=== PATIENT | male | born 1950 | race Caucasian/White ===

== ENCOUNTER 2016-08-08 17:46 | Inpatient (IN) | payer SELFPAY ==
[~2016-08-08] VITALS: Ht 188 cm; Wt 89.5 kg
[~2016-08-08 17:46] MED LIST: ASPI-621 PO; ATOR20TA9 PO; CLOP75TA PO; LISI-167 PO; METO-95 PO; METO25TA35 PO; NITR0.4T8 SL; SPIR25TA PO
[2016-08-08] MEDS ORDERED: ASPIRIN 81 MG TABLET CHEW PO ONE (18:00)
[2016-08-08] MEDS ORDERED: SODIUM CHLORIDE FLUSH 10ML SYR IVF ONE (18:00)
[2016-08-08] MEDS ORDERED: ASPIRIN 81 MG TABLET CHEW ONE (18:42)
[2016-08-08 18:50] LABS: BLOOD UREA NITROGEN 15 mg/dL (7-18)
[2016-08-08 18:57] LABS: IS PT STATUS REG ER OR PRE ER? YES
[2016-08-08] MEDS ORDERED: FUROSEMIDE 40 MG/4 ML IV ONE (19:30)
[2016-08-08] MEDS ORDERED: FUROSEMIDE 40 MG/4 ML ONE (19:34)
[2016-08-08] MEDS ORDERED: LABETALOL 5MG/ML, 20ML IVPush PRN (20:30)
[2016-08-08] MEDS ORDERED: ACETAMINOPHEN 325 MG TABLET PO PRN (20:30)
[2016-08-08] MEDS ORDERED: TRAZODONE 50MG TABLET PO PRN (20:30)
[2016-08-08] MEDS ORDERED: BISACODYL 10 MG SUPP PR PRN (20:30)
[2016-08-08] MEDS ORDERED: ONDANSETRON ODT 4 MG PO PRN (20:30)
[2016-08-08] MEDS ORDERED: POLYETHYLENE GLYCOL 17 GM PACKET PO PRN (20:30)
[2016-08-08] MEDS ORDERED: DOCUSATE 100 MG CAPSULE PO PRN (20:30)
[2016-08-08 22:16] VITALS: BP 122/86
[2016-08-08] MEDS: ENOXAPARIN 40 MG/0.4 ML SQ SCH (22:36)
[2016-08-08] MEDS: NICOTINE 14MG/24 HR PATCH.TD24 TD SCH (22:36)
[2016-08-08] MEDS: CALCIUM CARBONATE 500 MG TABLET PO SCH (22:37)
[2016-08-08] MEDS: ATORVASTATIN 80 MG TABLET PO SCH (22:37)
[2016-08-08 23:24] LABS: IS PT STATUS REG ER OR PRE ER? NO
[2016-08-09 00:36] VITALS: BP 122/85
[2016-08-09 05:16] LABS: ASPARTATE AMINO TRANSFERASE 23 U/L (15-37); BLOOD UREA NITROGEN 15 mg/dL (7-18)
[2016-08-09 05:17] LABS: IS PT STATUS REG ER OR PRE ER? NO
[2016-08-09 05:41] VITALS: BP 109/72
[2016-08-09] MEDS: CARVEDILOL 3.125 MG TABLET PO SCH ×2 (05:51→17:24)
[2016-08-09 07:29] VITALS: BP 123/82
[2016-08-09] MEDS: ASPIRIN 81 MG TABLET CHEW PO SCH (08:08)
[2016-08-09] MEDS: LISINOPRIL 10 MG TABLET PO SCH (08:08)
[2016-08-09] MEDS: CALCIUM CARBONATE 500 MG TABLET PO SCH ×2 (08:08→20:39)
[2016-08-09] MEDS: FUROSEMIDE 40 MG/4 ML IV SCH ×2 (08:08→16:15)
[2016-08-09 13:13] VITALS: BP 122/90
[2016-08-09] MEDS: SPIRONOLACTONE 25 MG TABLET PO SCH (16:15)
[2016-08-09 19:19] VITALS: BP 113/79
[2016-08-09] MEDS: ENOXAPARIN 40 MG/0.4 ML SQ SCH (20:39)
[2016-08-09] MEDS: ATORVASTATIN 80 MG TABLET PO SCH (20:39)
[2016-08-09] MEDS: NICOTINE 14MG/24 HR PATCH.TD24 TD SCH (20:39)
[2016-08-10 00:26] VITALS: BP 104/69
[2016-08-10 04:58] LABS: BLOOD UREA NITROGEN 17 mg/dL (7-18)
[2016-08-10] MEDS: CARVEDILOL 3.125 MG TABLET PO SCH ×2 (05:44→17:26)
[2016-08-10 06:57] VITALS: BP 114/76
[2016-08-10] MEDS: LISINOPRIL 10 MG TABLET PO SCH (08:16)
[2016-08-10] MEDS: FUROSEMIDE 40 MG/4 ML IV SCH ×2 (08:16→17:26)
[2016-08-10] MEDS: CALCIUM CARBONATE 500 MG TABLET PO SCH ×2 (08:16→21:06)
[2016-08-10] MEDS: SPIRONOLACTONE 25 MG TABLET PO SCH (08:16)
[2016-08-10] MEDS: ASPIRIN 81 MG TABLET CHEW PO SCH (08:16)
[2016-08-10 13:54] VITALS: BP 119/81
[2016-08-10 18:39] VITALS: BP 113/76
[2016-08-10] MEDS: NICOTINE 14MG/24 HR PATCH.TD24 TD SCH (19:38)
[2016-08-10] MEDS: ENOXAPARIN 40 MG/0.4 ML SQ SCH (19:38)
[2016-08-10] MEDS: ATORVASTATIN 80 MG TABLET PO SCH (21:06)
[2016-08-11 01:34] VITALS: BP 111/75
[2016-08-11 05:15] LABS: ASPARTATE AMINO TRANSFERASE 27 U/L (15-37); BLOOD UREA NITROGEN 20 mg/dL (7-18)
[2016-08-11] MEDS: CARVEDILOL 3.125 MG TABLET PO SCH ×2 (06:18→18:07)
[2016-08-11 07:14] VITALS: BP 101/67
[2016-08-11] MEDS: LISINOPRIL 10 MG TABLET PO SCH (09:00)
[2016-08-11 09:45] VITALS: BP 100/65
[2016-08-11] MEDS: LISINOPRIL 5 MG TABLET PO SCH (10:00)
[2016-08-11] MEDS: CALCIUM CARBONATE 500 MG TABLET PO SCH ×2 (10:04→20:44)
[2016-08-11] MEDS: SPIRONOLACTONE 25 MG TABLET PO SCH (10:04)
[2016-08-11] MEDS: ASPIRIN 81 MG TABLET CHEW PO SCH (10:04)
[2016-08-11] MEDS: FUROSEMIDE 40 MG/4 ML IV SCH (10:04)
[2016-08-11 12:38] VITALS: BP 101/65
[2016-08-11 18:51] VITALS: BP 108/72
[2016-08-11] MEDS: ENOXAPARIN 40 MG/0.4 ML SQ SCH (20:44)
[2016-08-11] MEDS: ATORVASTATIN 80 MG TABLET PO SCH (20:44)
[2016-08-11] MEDS: NICOTINE 14MG/24 HR PATCH.TD24 TD SCH (20:44)
[2016-08-12 02:00] VITALS: BP 95/62
[2016-08-12 05:37] LABS: BLOOD UREA NITROGEN 20 mg/dL (7-18)
[2016-08-12] MEDS: CARVEDILOL 3.125 MG TABLET PO SCH ×2 (06:01→18:09)
[2016-08-12 07:03] VITALS: BP 113/78
[2016-08-12] MEDS: LISINOPRIL 5 MG TABLET PO SCH (08:16)
[2016-08-12] MEDS: ASPIRIN 81 MG TABLET CHEW PO SCH (08:16)
[2016-08-12] MEDS: SPIRONOLACTONE 25 MG TABLET PO SCH (08:16)
[2016-08-12] MEDS: CALCIUM CARBONATE 500 MG TABLET PO SCH ×2 (08:16→21:00)
[2016-08-12] MEDS ORDERED: FUROSEMIDE 40 MG/4 ML IV SCH (09:00)
[2016-08-12] MEDS: FUROSEMIDE 40 MG TABLET PO SCH (10:55)
[2016-08-12 14:19] VITALS: BP 117/64
[2016-08-12 18:08] VITALS: BP 115/83
[2016-08-12 18:54] VITALS: BP 111/78
[2016-08-12] MEDS: ENOXAPARIN 40 MG/0.4 ML SQ SCH (20:30)
[2016-08-12] MEDS: NICOTINE 14MG/24 HR PATCH.TD24 TD SCH (20:30)
[2016-08-12] MEDS: ATORVASTATIN 80 MG TABLET PO SCH (21:00)
[2016-08-13 02:21] VITALS: BP 126/91
[2016-08-13] MEDS ORDERED: NITROGLYCERIN 0.4 MG BOTTLE (25 TABS) SL PRN (05:00)
[2016-08-13 05:29] VITALS: BP 125/78
[2016-08-13] MEDS: CARVEDILOL 3.125 MG TABLET PO SCH (05:35)
[2016-08-13 06:45] LABS: IS PT STATUS REG ER OR PRE ER? NO
[2016-08-13 07:08] VITALS: BP 116/77
[2016-08-13] MEDS: LISINOPRIL 5 MG TABLET PO SCH (08:14)
[2016-08-13] MEDS: CALCIUM CARBONATE 500 MG TABLET PO SCH ×2 (08:14→20:45)
[2016-08-13] MEDS: SPIRONOLACTONE 25 MG TABLET PO SCH (08:14)
[2016-08-13] MEDS: FUROSEMIDE 40 MG TABLET PO SCH (08:14)
[2016-08-13] MEDS: ASPIRIN 81 MG TABLET CHEW PO SCH (08:14)
[2016-08-13 11:56] LABS: IS PT STATUS REG ER OR PRE ER? NO
[2016-08-13 15:01] VITALS: BP 119/88
[2016-08-13 17:31] VITALS: BP 130/89
[2016-08-13] MEDS: CARVEDILOL 6.25 MG TABLET PO SCH (17:33)
[2016-08-13 17:36] LABS: IS PT STATUS REG ER OR PRE ER? NO
[2016-08-13 18:45] VITALS: BP 99/66
[2016-08-13] MEDS: NICOTINE 14MG/24 HR PATCH.TD24 TD SCH (20:47)
[2016-08-13] MEDS: ATORVASTATIN 80 MG TABLET PO SCH (20:48)
[2016-08-13] MEDS: ENOXAPARIN 40 MG/0.4 ML SQ SCH (20:50)
[2016-08-13 23:32] LABS: IS PT STATUS REG ER OR PRE ER? NO
[2016-08-14 01:45] VITALS: BP 106/72
[2016-08-14] MEDS: CARVEDILOL 6.25 MG TABLET PO SCH (05:38)
[2016-08-14 07:08] VITALS: BP 109/74
[2016-08-14] MEDS: ASPIRIN 81 MG TABLET CHEW PO SCH (08:22)
[2016-08-14] MEDS: SPIRONOLACTONE 25 MG TABLET PO SCH (08:22)
[2016-08-14] MEDS: CALCIUM CARBONATE 500 MG TABLET PO SCH (08:22)
[2016-08-14] MEDS: LISINOPRIL 5 MG TABLET PO SCH (08:23)
[2016-08-14] MEDS: FUROSEMIDE 40 MG TABLET PO SCH (08:28)
[2016-08-14] MEDS ORDERED: SPIR25TA PO (12:57)
[2016-08-14] MEDS ORDERED: FURO40TA6 PO (12:57)
[2016-08-14] MEDS ORDERED: LISI5TAB7 PO (12:57)
[2016-08-14] MEDS ORDERED: ATOR80TA75 PO (12:57)
[2016-08-14] MEDS ORDERED: CARV6.2512 PO (12:57)
[2016-08-14 13:15] VITALS: BP 112/83
== END 2016-08-14 15:00 | disposition home or self-care (01) | DRG 291 ==
LOC: ED 19:15 → EDIP 19:57 → 5SO 21:28 → 4WST 08-12 11:48
PROVIDERS: ADMIT Internal Medicine; ATTEND Internal Medicine
DX: I11.0 Hypertensive heart disease with heart failure (principal); J96.01 Acute respiratory failure with hypoxia; I50.43 Acute on chronic combined systolic (congestive) and diastolic (congestive) heart failure; I25.10 Atherosclerotic heart disease of native coronary artery without angina pectoris; E78.5 Hyperlipidemia, unspecified; F17.210 Nicotine dependence, cigarettes, uncomplicated; E83.51 Hypocalcemia; I25.5 Ischemic cardiomyopathy; I34.0 Nonrheumatic mitral (valve) insufficiency; Z95.1 Presence of aortocoronary bypass graft; I25.2 Old myocardial infarction; Z59.0 Homelessness; Z71.6 Tobacco abuse counseling; Z91.14 Patient's other noncompliance with medication regimen; Z79.82 Long term (current) use of aspirin
CPT/HCPCS: 36415; 71010; 80048; 80053; 80061; 82040; 83735; 83880; 84439; 84443; 84484; 85025; 93005; 93306; 96374; J1650; J1940